=== PATIENT | male | born 1995 | race African-American/Black ===

== ENCOUNTER 2019-08-22 15:38 | Emergency (ER) | payer SELFPAY ==
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
[2019-08-22 17:10] LABS: BLOOD UREA NITROGEN,BUN 10 mg/dL (7.0-18.0); CARBON DIOXIDE,CO2 27.2 mmol/L (21.0-32.0); CHLORIDE,CL 102 mmol/L (98-107); GLUCOSE RANDOM 86 mg/dL (74-106); LIPASE 136 U/L (73-393); POTASSIUM,K 4.1 mmol/L (3.5-5.1); SODIUM,NA 139 mmol/L (136-148)
== END 2019-08-22 16:55 | disposition left against medical advice (07) ==
LOC: MW.ED 15:38
DX: R10.11 Right upper quadrant pain (principal)
CPT/HCPCS: 36415; 80053; 83690; 85025; 99282; 99284